=== PATIENT | male | born 1985 | race Caucasian/White ===

== ENCOUNTER 2023-11-29 04:26 | Emergency (ER) | payer SELFPAY ==
--- NOTE | 2023-11-29 04:15 | RT.EKG_ITS ---
APPROVED REPORT Exam: Resting ECG Reason for Exam: sob Patient Location: E HR:63 bpm ECG Measurements Heart Rate 63 AXIS WV 136 P 42 QRSd 96 QRS 52 QT 430 T 37 QTc 440 Conclusion Sinus rhythm...normal P axis, V-rate 60- 99 ST elev, probable normal early repol pattern...ST elevation, age<55 Physician: no stemi
[2023-11-29 04:27] VITALS: BP 145/81; PULSE 68; RESP 16; TEMP 36.8; O2SAT 98
--- NOTE | 2023-11-29 04:44 | W.ED.GENAD ---
Discharge Plan Discharge Details Chief Complaint: PsychEval Clinical Impression: Hypoglycemia, Alcohol intoxication Primary Care Provider: Unknown,Unknown ED Provider: Mario Riggins Home Meds and New Rx's Prescriptions: No Action Unable to Obtain HPI General Date/Time Provider Initiated Documentation: 11/29/23 04:34. HPI Narrative: This is a 38-year-old male with a past medical history of alcohol/stimulant use (cocaine/opiate use disorders), alcohol withdrawal seizure? Anxiety, depression, HSV, gout, with a recent admission to the [facility] for Topamax/buprenorphine/propranolol/escitalopram/valacyclovir overdose, who presents to us today via EMS from skilled nursing/[facility] for evaluation. Patient was at [place], and admits to drinking alcohol and states he acted like a jerk to police and so they brought me in. He was transition from [facility] to [facility] for sobriety. While at [facility] he began covering the window with his pillow so we could not be seen. This was against protocol. When staff went in to come talk with him, per EMS he laid down on the floor and would not respond to them. EMS was then called and would answer some of their questions and then closes eyes lay down fold his hands and then refused to answer anything else. He was brought in for further assessment. He denied any other complaints to EMS. Initially here he did not respond to any questions, but he would not open his eyes and look around at various members in the room, track us, and fold his arms. Eventually he did answer questions and state that he denies any homicidal or suicidal ideations. He drank this evening which he regrets. He feels anxious, and feels that he was treated unfairly by law enforcement. He denies any headache or chest pain or shortness of breath. He denies homicidal or suicidal ideations but does state that he feels quite bad for what happened. He denies wanting to end his life. He does state that he feels anxious and would like Ativan to help with that. No other complaints at this time. No other modifying factors. Related Data Home Medications ?Medication ?Instructions ?Recorded ?Confirmed Unknown [Unable to Obtain] 11/29/23 11/29/23 Allergies Allergy/AdvReac Type Severity Reaction Status Date / Time No Known Allergies Allergy Verified 11/29/23 05:01 Review of Systems All systems reviewed & are unremarkable except as noted in HPI and below Exam Narrative Exam Narrative: 1.Const: Well-nourished, Well-developed, appearing stated age 2.Eyes: PERRL, no conjunctival injection, and symmetrical lids. 3.ENT: Atraumatic external nose and ears. Moist MM. Neck: Symmetric, trachea midline, No thyromegaly. 4.CVS: +S1/S2, No murmurs or gallops. Peripheral pulses 2+ and equal in all extremities. Brisk capillary refill in all extremities. 5.RESP: Unlabored respiratory effort. Clear to auscultation bilaterally. No wheezes rales or rhonchi 6.GI: Soft, Nontender/Nondistended, No hepatosplenomegaly. No guarding or rebound. 7.MSK: Normocephalic/Atraumatic, Extremities w/o deformity or ttp No cyanosis or clubbing, Normal movement of all extremities 8.Skin: Warm, Dry. No rashes or lesions. 9.Neuro: cargo worker II-XII grossly intact. Sensation grossly intact, no focal neurologic deficits. 10.Psych: (AAO) x3. Mildly intoxicated appearing. Flat affect, but slightly tearful intermittently Procedures EJ/Peripheral Line Arm L: Time Out Performed: Yes Skin Cleansed in Sterile Fashion: Yes Size (gauge): 18 IV Secured and Dressing Applied: Yes Patient Tolerated Procedure: well and no complications Additional Comments: Candidate vein examined with linear array probe - confirmed collapsibility, lack of pulsatility, and proper anatomic location. Using aseptic technique, IV catheter inserted with flash of blood noted, flow of venous blood confirmed. Flushes easily and without pain. No hematoma or complications noted. IV secured. Patient tolerated well. Medical Decision Making This is a 38-year-old male with a past medical history of alcohol/stimulant use (cocaine/opiate use disorders), alcohol withdrawal seizure? Anxiety, depression, HSV, gout, with a recent admission to the [facility] for Topamax/buprenorphine/propranolol/escitalopram/valacyclovir overdose, who presents to us today via EMS from skilled nursing/[facility] for evaluation. Patient was at [place], and admits to drinking alcohol and states he acted like a jerk to police and so they brought me in. He was transition from [facility] to [facility] for sobriety. While at [facility] he began covering the window with his pillow so we could not be seen. This was against protocol. When staff went in to come talk with him, per EMS he laid down on the floor and would not respond to them. EMS was then called and would answer some of their questions and then closes eyes lay down fold his hands and then refused to answer anything else. He was brought in for further assessment. He denied any other complaints to EMS. Initially here he did not respond to any questions, but he would not open his eyes and look around at various members in the room, track us, and fold his arms. Eventually he did answer questions and state that he denies any homicidal or suicidal ideations. He drank this evening which he regrets. He feels anxious, and feels that he was treated unfairly by law enforcement. He denies any headache or chest pain or shortness of breath. He denies homicidal or suicidal ideations but does state that he feels quite bad for what happened. He denies wanting to end his life. He does state that he feels anxious and would like Ativan to help with that. No other complaints at this time. No other modifying factors. Exam demonstrates flat affect yet tearful male, no acute distress otherwise. No signs of trauma on exam. Suspect intoxication to be the cause of his symptomatology. We will check glucose level to rule out hypoglycemia. No signs of trauma to the patient's head or chest to suggest acute traumatic etiology, subdural epidural or subarachnoid hemorrhage. We will gently rehydrate the patient, evaluate for laboratory abnormality, check glucose and alcohol levels, monitor closely and reassess. We will give 0.25 mg of Ativan as he states he does feel quite anxious. 7:10 AM Patient remains hemodynamically stable. Laboratory workup demonstrates minimal metabolic acidosis, anion gap of 15. He has been rehydrated. He has not yet urinated, alcohol elevated at 91. Glucose is 49. Patient refused oral food, he was given an amp of D50 we will continue hourly Accu-Cheks. Patient does appear to be metabolizing towards sobriety. We will have mental health come and assess him. Patient will be signed out to my colleague Dr. Allan for follow-up on mental health assessment and repeat blood sugars. Quality:SDOH Health Related Social Needs: No Data to Display PFSH All Active Problems (Updated 11/29/23 @ 07:12 by Mario Riggins DO) Alcohol intoxication (Acute) Hypoglycemia (Acute) Medical History (Updated 11/29/23 @ 07:12 by Mario Riggins DO) Hep C w/o coma, chronic Gonorrhea HIV (human immunodeficiency virus infection) Social History Smoking risk assessment performed?: No Drug use: Daily Substance use type: crack/cocaine and heroin Housing: homeless
[2023-11-29] MEDS: LORazepam 2 MG/ML VIAL 0.25 MG IVP (05:00)
[2023-11-29] MEDS: Lactated Ringers 1,000 ML 1000 ML IV (05:00)
[2023-11-29 05:04] LABS: BE (Venous) -3 mmol/L (-2-3); HCO3 (Venous) 24 mmol/L (23-28); O2 Sat (Venous) 56 %; TCO2 (Venous) 22 mmol/L (24-29); pCO2 (Venous) 50 mmHg (41-51); pH (Venous) 7.29 (7.31-7.41); pO2 (Venous) 33 mmHg
[2023-11-29 05:05] LABS: Abs Immature Grans 0.05 10^3/uL (0.0-0.06); Absolute Lymphocyte Count 2.14 10^3/uL (1.2-3.4); Absolute Monocyte Count 0.62 10^3/uL (0.1-0.8); Absolute Neutrophil Count 9.44 10^3/uL (1.2-6.7); Basophils % 0.9 %; Eosinophils % 2.8 %; HCT 43.8 % (40.0-50.0); HGB 14.1 g/dL (13.5-17.5); Immature Grans % 0.4 %; Lymphocytes % 16.8 %; MCH 29.7 pg (27.0-33.0); MCHC 32.2 % (32.0-36.0); MCV 92 fL (80-95); MPV 10.2 fL (8.0-11.0); Monocytes % 4.9 %; Neutrophils % 74.2 %; Platelet Count 261 10^3/uL (130-400); RBC 4.74 10^6/uL (4.36-5.78); RDW-SD 47.6 fL; WBC 12.72 10^3/uL (4.4-10.8)
[2023-11-29 05:07] LABS: Absolute Basophil Count 0.11 10^3/uL (0.0-0.2); Absolute Eosinophil Count 0.36 10^3/uL (0.0-0.7)
[2023-11-29 05:22] LABS: Salicylate < 2.8 mg/dL (<2.8)
[2023-11-29 05:27] LABS: Acetaminophen < 2 ug/mL (10-30)
[2023-11-29 05:30] LABS: ALT 29 U/L (16-63); AST 25 U/L (15-37); Albumin 4.2 g/dL (3.4-5.0); Alkaline Phosphatase 88 U/L (46-116); BUN 14 mg/dL (7-18); Bilirubin, Total 0.43 mg/dL (0.2-1.0); CREATININE 0.9 mg/dL (0.70-1.30); Calcium 9.8 mg/dL (8.5-10.1); Chloride 102 mmol/L (98-107); ETHANOL BLOOD 91.5 mg/dL (<10); Estimated GFR 110.73 (mL/min/1.73m2); Potassium 3.6 mmol/L (3.5-5.1); Sodium 142 mmol/L (136-145); TSH (W/Ref FT4) 0.81 uIU/mL (0.36-3.74); Total Protein 8.3 g/dL (6.4-8.2)
[2023-11-29 05:31] LABS: Glucose 49 mg/dL (74-106)
--- NOTE | 2023-11-29 05:45 | NUR.NOTE ---
Nursing Note: PT refusing to drink anything with sugar. States that he just wants vodka.
[2023-11-29] MEDS: Dextrose 50%-Water 25 GM/50 ML SYR IVP (05:53)
--- NOTE | 2023-11-29 08:14 | ED.PROG_ITS ---
Date of service: 11/29/23 Time of Service: 08:14 Medical Decision Making I received signout on this 38-year-old patient who arrived to the emergency department in the setting of alcohol intoxication. Patient had previously been hospitalized at [facility]. He is pending evaluation with [facility] human services. Patient also reported homelessness. Will engage care management. Patient did have transient hypoglycemia and labs consistent with ethanol intoxication. Based on his ethanol level and the time that he has been in the emergency department he has metabolized. Patient has not had anything at by mouth. His last fingerstick blood glucose was reportedly 109. 9:54 AM I spoke with Sydney from [facility]. She is in to assess the patient. 10:32 AM I spoke Zahra Anglin from [facility] who will attempt to assess him. 10:54 AM I met with the patient. He was not suicidal. His blood sugars have been within normal limits. He is alert and oriented. He had not yet met with care management. The ED was undergoing a medical surge. I paged care management and will discharge patient. He can wait in the waiting room to meet with care management. 11/29 Late charting due to patient care. Care management ultimately did not see this patient during his emergency department stay. I had asked the patient to wait in the waiting room for care management. After being discharged patient left from the waiting room. His fingerstick blood glucose levels remain reassuring. He tolerated p.o. in the ED. Quality:SDOH Health Related Social Needs: No Data to Display Sign Out Sign Out Data: Sign Out Comment: Intoxicated, appears mildly depressed. Pending mental health reassessment. Hypoglycemic, q. hourly Accu-Cheks. Last updated by Mario Riggins DO at 11/29/23 07:17 Discharge Plan Disposition Patient Disposition: Home Discharge Details Clinical Impression: Hypoglycemia, Alcohol intoxication Primary Care Provider: Unknown,Unknown ED Provider: Berny Allan Home Meds and New Rx's Prescriptions: No Action Unable to Obtain Discharge Instructions Additional Instructions: You are seen in the emergency department for alcohol intoxication. Please return to the emergency department if you fall develop chest pain or shortness of breath or if you have any other concerns. Discharge Data Discharge Date/Time-TO BE ENTERED AT DEPARTURE: 11/29/23 11:15
[2023-11-29 08:47] VITALS: BP 123/85; PULSE 55; RESP 16; O2SAT 98
[2023-11-29 11:08] VITALS: PULSE 75; RESP 16; O2SAT 98
== END 2023-11-29 11:15 | disposition home or self-care (01) ==
LOC: ER 11:50
PROVIDERS: Student in an Organized Health Care Education/Training Program; Emergency Provider Emergency Medicine
DX: F10.929 Alcohol use, unspecified with intoxication, unspecified (principal); E16.2 Hypoglycemia, unspecified; R45.851 Suicidal ideations
CPT/HCPCS: 00123; 36415; 36416; 80053; 82805; 82962; 93005; 96361; 96374; 96375; 99284; 80320; 80329; 84443; 85025; 93010; J2060